=== PATIENT | male | born 1935 | race Caucasian/White ===

== ENCOUNTER 2024-03-30 11:34 | Inpatient (IN) ==
[2024-03-30 12:26] LABS: ABS Eosinophils 0.1 10^3/uL (0.0-0.5); ABS Lymphocytes 2.1 10^3/uL (1.0-4.8); ABS Monocytes 0.8 10^3/uL (0.0-1.1); ABS Neutrophils 5.7 10^3/uL (1.5-7.6); ABS Nucleated RBC 0.01 10^3/ul; Eosinophil % 1.2 %; Hematocrit 43.6 % (38-53); Hemoglobin 14.5 g/dL (13.2-16.3); Lymphocyte % 24.3 %; Mean Corpuscular Hemoglobin 29.6 pg (27-33); Mean Corpuscular Hgb Conc 33.2 g/dL (31-36); Mean Corpuscular Volume 89.3 fL (80-97); Mean Platelet Volume 9.5 fL (7.5-11.2); Nucleated Red Blood Cells % 0.1 %/100WBC (0.0-0.8); Platelet Count 215 10^3/uL (150-450); Red Blood Count 4.88 10^6/uL (4.06-5.63); Red Cell Distribution Width 14.9 % (12-17); White Blood Count 8.8 10^3/uL (3.6-10.2)
[2024-03-30] MEDS: Lactated Ringers 1000 ml BAG 1,000 ML IV ONE (12:46)
[2024-03-30 13:02] LABS: ALT 10 U/L (7-52); Albumin 4.3 g/dL (3.2-5.2); Albumin/Globulin Ratio 1.2 (1-3); Alkaline Phosphatase 80 U/L (35-149); Anion Gap 11 mmol/L (2-16); Blood Urea Nitrogen 17 mg/dL (6-24); CO2 Carbon Dioxide 27 mmol/L (22-32); Calcium 9.4 mg/dL (8.6-10.3); Chloride 105 mmol/L (101-111); Creatinine, Serum 1.22 mg/dL (0.67-1.17); Globulin 3.5 g/dL (2-4); Glucose 50 mg/dL (70-100); Magnesium 1.9 mg/dL (1.9-2.7); Sodium 143 mmol/L (135-145); Total Bilirubin 0.7 mg/dL (0.2-1.0); Total Protein 7.8 g/dL (6.4-8.9)
[2024-03-30] MEDS: Iodixanol 320 (CONTRAST) 100 ML SDV IV ONE (14:08)
[2024-03-30] MEDS ORDERED: Midazolam 10 mg/10 ml VIAL 1 mg/ml 10 ml VIAL (10 mg) ONE (16:01)
[2024-03-30] MEDS ORDERED: fentaNYL 100 mcg/2 ml 50 MCG/ML VIAL ONE (16:01)
[2024-03-30] MEDS ORDERED: Acetaminophen IV 1 GM/100ML 1,000 MG/100 ML BAG IV PRN (16:57)
[2024-03-30] MEDS: Lactated Ringers 1000 ml BAG 1,000 ML IV SCH (18:11)
[2024-03-30] MEDS: Nitro 2% OINT (Nitroglycerin) 1 INCH/PAK TOPICAL SCH (18:13)
[2024-03-30] MEDS: Metoprolol Tartrate 5 mg VIAL 5 ml VIAL (1 mg/ml) IV SCH (18:14)
[2024-03-30] MEDS: Heparin 5000 UNITS/ML 1 mL VIAL SUBCUT SCH (21:17)
[2024-03-30] MEDS: Insulin GLARGINE 100 un/ml 10 ml VIAL SUBCUT SCH (21:22)
[2024-03-31 00:08] LABS: Potassium Redraw 3.7 mmol/L (3.5-5.0)
[2024-03-31] MEDS: Levothyroxine 100 MCG/5 ML VIAL IV SCH (06:07)
[2024-03-31] MEDS: Dextrose 50% Syringe 50 ml 25 GM/50 ML SYRINGE IV PUSH PRN (07:35)
[2024-03-31] MEDS: Dextrose 50% Syringe 50 ml 25 GM/50 ML SYRINGE ONE (07:40)
[2024-03-31 09:19] LABS: ABS Basophils 0.1 10^3/uL (0.0-0.1); ABS Eosinophils 0.1 10^3/uL (0.0-0.5); ABS Lymphocytes 1.4 10^3/uL (1.0-4.8); ABS Monocytes 0.5 10^3/uL (0.0-1.1); ABS Neutrophils 3.1 10^3/uL (1.5-7.6); Eosinophil % 2.2 %; Hematocrit 40.7 % (38-53); Hemoglobin 13.3 g/dL (13.2-16.3); Lymphocyte % 26.7 %; Mean Corpuscular Hemoglobin 29.3 pg (27-33); Mean Corpuscular Hgb Conc 32.6 g/dL (31-36); Mean Corpuscular Volume 89.8 fL (80-97); Mean Platelet Volume 9.5 fL (7.5-11.2); Platelet Count 145 10^3/uL (150-450); Red Blood Count 4.53 10^6/uL (4.06-5.63); Red Cell Distribution Width 15.2 % (12-17); White Blood Count 5.1 10^3/uL (3.6-10.2)
[2024-03-31 09:36] LABS: Calcium 8.6 mg/dL (8.6-10.3); Creatinine, Serum 1.05 mg/dL (0.67-1.17); Magnesium 1.7 mg/dL (1.9-2.7); Phosphorus 2.9 mg/dL (2.5-5.0); eGFR CKD-EPI 68.3 (>60)
[2024-03-31] MEDS: Metoprolol Tartrate 5 mg VIAL 5 ml VIAL (1 mg/ml) IV SCH (11:43)
[2024-03-31] MEDS ORDERED: hydrALAZINE 20 mg/ml 1 ML Vial IV IV SLOW PU PRN (20:59)
[2024-04-01 06:12] LABS: ABS Basophils 0.1 10^3/uL (0.0-0.1); ABS Eosinophils 0.1 10^3/uL (0.0-0.5); ABS Lymphocytes 1.4 10^3/uL (1.0-4.8); ABS Monocytes 0.5 10^3/uL (0.0-1.1); Hematocrit 39.2 % (38-53); Hemoglobin 12.7 g/dL (13.2-16.3); Lymphocyte % 34.3 %; Mean Corpuscular Hemoglobin 29.1 pg (27-33); Mean Corpuscular Hgb Conc 32.5 g/dL (31-36); Mean Corpuscular Volume 89.3 fL (80-97); Mean Platelet Volume 9.6 fL (7.5-11.2); Platelet Count 148 10^3/uL (150-450); Red Blood Count 4.39 10^6/uL (4.06-5.63); Red Cell Distribution Width 14.9 % (12-17); White Blood Count 4.1 10^3/uL (3.6-10.2)
[2024-04-01 06:43] LABS: Magnesium 1.6 mg/dL (1.9-2.7); Phosphorus 2.8 mg/dL (2.5-5.0); Potassium 3.9 mmol/L (3.5-5.0); eGFR CKD-EPI 72.4 (>60)
[2024-04-01] MEDS: Magnesium Sulfate 2 gm BAG 2 GM/50 ML BAG IVPB ONE (14:16)
[2024-04-02 08:52] LABS: Albumin 3.6 g/dL (3.2-5.2); Albumin/Globulin Ratio 1.2 (1-3); Calcium 8.4 mg/dL (8.6-10.3); Creatinine, Serum 1.04 mg/dL (0.67-1.17); Potassium 4.3 mmol/L (3.5-5.0); Total Bilirubin 0.5 mg/dL (0.2-1.0); Total Protein 6.6 g/dL (6.4-8.9); eGFR CKD-EPI 69.1 (>60)
[2024-04-02 08:58] LABS: Magnesium 1.9 mg/dL (1.9-2.7)
[2024-04-02] MEDS ORDERED: Nitro 2% OINT (Nitroglycerin) 1 INCH/PAK TOPICAL SCH (13:25)
[2024-04-02] MEDS: Nitro 2% OINT (Nitroglycerin) 1 INCH/PAK TOPICAL SCH (14:58)
[2024-04-03] MEDS: Nitro 2% OINT (Nitroglycerin) 1 INCH/PAK TOPICAL SCH (05:32)
[2024-04-03 06:19] LABS: ABS Eosinophils 0.1 10^3/uL (0.0-0.5); ABS Lymphocytes 1.8 10^3/uL (1.0-4.8); ABS Monocytes 0.5 10^3/uL (0.0-1.1); ABS Neutrophils 2.3 10^3/uL (1.5-7.6); Eosinophil % 2.5 %; Hematocrit 37.2 % (38-53); Hemoglobin 12.5 g/dL (13.2-16.3); Lymphocyte % 37.7 %; Mean Corpuscular Hemoglobin 29.7 pg (27-33); Mean Corpuscular Hgb Conc 33.7 g/dL (31-36); Mean Corpuscular Volume 88.1 fL (80-97); Mean Platelet Volume 9.7 fL (7.5-11.2); Nucleated Red Blood Cells % 0.1 %/100WBC (0.0-0.8); Platelet Count 142 10^3/uL (150-450); Red Blood Count 4.22 10^6/uL (4.06-5.63); Red Cell Distribution Width 14.8 % (12-17); White Blood Count 4.7 10^3/uL (3.6-10.2)
[2024-04-03 06:33] LABS: Albumin 3.2 g/dL (3.2-5.2); Albumin/Globulin Ratio 1.2 (1-3); Creatinine, Serum 0.97 mg/dL (0.67-1.17); Globulin 2.7 g/dL (2-4); Magnesium 1.7 mg/dL (1.9-2.7); Phosphorus 2.3 mg/dL (2.5-5.0); Total Bilirubin 0.4 mg/dL (0.2-1.0); Total Protein 5.9 g/dL (6.4-8.9); eGFR CKD-EPI 75.1 (>60)
[2024-04-03] MEDS: Magnesium Sulfate 2 gm BAG 2 GM/50 ML BAG IVPB ONE (08:20)
[2024-04-03 08:34] LABS: INR 1.08 (0.85-1.14)
[2024-04-03] MEDS: Potassium & Sodium Phos 250 mg = 1 PACKET PO SCH (12:47)
[2024-04-03] MEDS ORDERED: Dextrose 50% Syringe 50 ml 25 GM/50 ML SYRINGE IV PUSH PRN (16:03)
[2024-04-03] MEDS: Heparin 5000 UNITS/ML 1 mL VIAL SUBCUT ONE (18:35)
[2024-04-04 06:22] LABS: Hemoglobin 12.3 g/dL (13.2-16.3); Mean Corpuscular Hemoglobin 29.7 pg (27-33); Mean Corpuscular Hgb Conc 33.4 g/dL (31-36); Mean Corpuscular Volume 88.9 fL (80-97); Mean Platelet Volume 9.6 fL (7.5-11.2); Platelet Count 136 10^3/uL (150-450); Red Blood Count 4.16 10^6/uL (4.06-5.63); Red Cell Distribution Width 14.7 % (12-17); White Blood Count 4.7 10^3/uL (3.6-10.2)
[2024-04-04 06:51] LABS: Calcium 8.4 mg/dL (8.6-10.3); Creatinine, Serum 1.08 mg/dL (0.67-1.17); Potassium 4.7 mmol/L (3.5-5.0)
[2024-04-04] MEDS ORDERED: ceFAZolin 2 GM PREMIX 2 GM/50 ML BAG ONE (12:23)
[2024-04-04] MEDS ORDERED: Ondansetron 4 mg VIAL 2 MG/ML 2 ml VIAL IV PRN (12:44)
[2024-04-04] MEDS ORDERED: Naloxone 0.4 mg VIAL 0.4 mg/ml 1 ml VIAL IV PRN (12:44)
[2024-04-04] MEDS ORDERED: Rocuronium 50 mg VIAL 10 mg/ml 5 ml VIAL (50 mg) ONE ×2 (12:47→14:52)
[2024-04-04] MEDS ORDERED: fentaNYL 100 mcg/2 ml 50 MCG/ML VIAL ONE ×3 (12:47→15:37)
[2024-04-04] MEDS ORDERED: Ondansetron 4 mg VIAL 2 MG/ML 2 ml VIAL ONE ×2 (12:48→14:56)
[2024-04-04] MEDS ORDERED: Glycopyrrolate IV 0.2 MG/ML 1 ML VIAL ONE (12:48)
[2024-04-04] MEDS ORDERED: Propofol 10 MG/ML 20 ML BTL ONE (12:48)
[2024-04-04] MEDS ORDERED: NS 0.45% 1000 ml BAG 1,000 ML IV SCH (13:00)
[2024-04-04] MEDS ORDERED: Succinylcholine 200 mg VIAL 20 mg/ml 10 ml VIAL (200 mg) ONE (13:23)
[2024-04-04] MEDS ORDERED: Methylene Blue 1% (ANTIDOTE) 10 MG/ML 10 ML SDV VIAL IVPB ONE (13:43)
[2024-04-04] MEDS ORDERED: Bupivacaine 0.25% EPI 200,000 30 ML SDV ONE (13:43)
[2024-04-04] MEDS ORDERED: Labetalol IV 5 MG/ML 20 ml VIAL ONE (14:22)
[2024-04-04] MEDS ORDERED: Metoprolol Tartrate 5 mg VIAL 5 ml VIAL (1 mg/ml) ONE (14:22)
[2024-04-04] MEDS: fentaNYL 100 mcg/2 ml 50 MCG/ML VIAL IV PRN (15:40)
[2024-04-04] MEDS: Buffered Lidocaine 1% SYRIN 1 ml INTRADERM ONE (17:41)
[2024-04-04] MEDS: Acetaminophen IV 1 GM/100ML 1,000 MG/100 ML BAG IV ONE (17:41)
[2024-04-04] MEDS: Lactated Ringers 1000 ml BAG 1,000 ML IV SCH (17:41)
[2024-04-04] MEDS: ceFAZolin 2 GM PREMIX 2 GM/50 ML BAG IVPB ONE (17:42)
[2024-04-04] MEDS ORDERED: Isosorbide Mononit ER 60mg TAB PO SCH (19:00)
[2024-04-04] MEDS: Heparin 5000 UNITS/ML 1 mL VIAL SUBCUT SCH (22:41)
[2024-04-05] MEDS: Isosorbide Mononit ER 60mg TAB PO SCH (01:45)
[2024-04-05] MEDS: Nystatin TOP POWDER 15 GM BTL TOPICAL SCH (04:33)
[2024-04-05 06:19] LABS: Hematocrit 39.3 % (38-53); Hemoglobin 13.2 g/dL (13.2-16.3); Mean Corpuscular Hemoglobin 29.8 pg (27-33); Mean Corpuscular Hgb Conc 33.6 g/dL (31-36); Mean Corpuscular Volume 88.7 fL (80-97); Mean Platelet Volume 10.2 fL (7.5-11.2); Platelet Count 154 10^3/uL (150-450); Red Blood Count 4.44 10^6/uL (4.06-5.63); Red Cell Distribution Width 14.9 % (12-17); White Blood Count 7.2 10^3/uL (3.6-10.2)
[2024-04-05] MEDS: CMCS: Isosorbide Mononitr 20 mg (NF) PO SCH (06:36)
[2024-04-05 06:38] LABS: Calcium 8.4 mg/dL (8.6-10.3); Creatinine, Serum 1.24 mg/dL (0.67-1.17); Magnesium 1.7 mg/dL (1.9-2.7); Phosphorus 3.2 mg/dL (2.5-5.0); Potassium 4.4 mmol/L (3.5-5.0); eGFR CKD-EPI 55.9 (>60)
[2024-04-05] MEDS ORDERED: NS 0.9% 1000 ml BAG 1,000 ML IV SCH (08:30)
[2024-04-05] MEDS: NS 0.9% 500 ml BAG 500 ML IV SCH (08:38)
[2024-04-05] MEDS: Magnesium Sulfate 2 gm BAG 2 GM/50 ML BAG IVPB ONE (08:38)
[2024-04-05] MEDS: Insulin GLARGINE 100 un/ml 10 ml VIAL SUBCUT SCH (21:44)
[2024-04-06] MEDS: Levothyroxine 100 MCG/5 ML VIAL IV SCH (05:58)
[2024-04-06 07:01] LABS: Calcium 9.1 mg/dL (8.6-10.3); Creatinine, Serum 1.39 mg/dL (0.67-1.17); Magnesium 2.3 mg/dL (1.9-2.7); Potassium 4.4 mmol/L (3.5-5.0); eGFR CKD-EPI 48.8 (>60)
[2024-04-06 07:05] LABS: Hematocrit 41.5 % (38-53); Hemoglobin 13.9 g/dL (13.2-16.3); Mean Corpuscular Hgb Conc 33.4 g/dL (31-36); Mean Corpuscular Volume 89.6 fL (80-97); Mean Platelet Volume 10.2 fL (7.5-11.2); Platelet Count 178 10^3/uL (150-450); Red Blood Count 4.63 10^6/uL (4.06-5.63); Red Cell Distribution Width 15.3 % (12-17); White Blood Count 12.1 10^3/uL (3.6-10.2)
[2024-04-06 08:33] LABS: Phosphorus 4.2 mg/dL (2.5-5.0)
[2024-04-06 13:54] VITALS: BP 140/75
== END 2024-04-06 16:55 | disposition home or self-care (01) | DRG 374 ==
LOC: ED 11:34 → EDHOLD 11:34 → MEDTELE 16:00 → AA 16:15 → MEDTELE 17:24
PROVIDERS: ADMIT Internal Medicine; ATTEND Internal Medicine